=== PATIENT | male | born 1970 | race Caucasian/White ===

== ENCOUNTER 2018-03-22 12:19 | Inpatient (IN) | payer OTHER ==
[2018-03-22] VITALS (181 sets, daily range): BP systolic 94–136; BP diastolic 55–99; PULSE 76–153; TEMP 97.6–99.2; O2SAT 88–99
[~2018-03-22] VITALS: Wt 121.9 kg
[~2018-03-22 12:19] MED LIST: GABAPENTIN100 M1 PO; GLUCOSAMINE500 MG PO
--- NOTE | 2018-03-22 12:25 | NUR ---
REPORT RECEIVED FROM HERBER MONSALVE OF [place] VIA TELEPHONE.
--- NOTE | 2018-03-22 13:30 | NUR ---
PT ARRIVED VIA STRETCHER ESCORTED BY EMS. PT ALERT AND ORIENTED, DENIES ANY PAIN EXCEPT FOR 2/10 HEADACHE. PT ORIENTED TO ROOM.
--- NOTE | 2018-03-22 14:10 | NUR ---
DR. KIDD AT BEDSIDE FOR ROUNDS.
[2018-03-22] MEDS ORDERED: TOPROL XL 25MG25 MG PO (14:34)
[2018-03-22] MEDS ORDERED: ZYRTEC 10MG10 MG PO (14:35)
--- NOTE | 2018-03-22 15:40 | NUR ---
DR. FIELDS AT BEDSIDE FOR ROUNDS.
[2018-03-22 15:43] LABS: CHOLESTEROL RISK RATIO 6.2; MAGNESIUM 1.6 mg/dL (1.6-2.3)
[2018-03-22 15:53] LABS: INR 1.2 (0.8-3.0); PROTHROMBIN TIME 13.1 SECONDS (9.7-12.8)
[2018-03-22 15:56] LABS: PARTIAL THROMBOPLASTIN TIME 29.4 SECONDS (26.0-37.0)
[2018-03-22 16:07] LABS: TROPONIN-I 0.036 ng/mL (0.000-0.034)
--- NOTE | 2018-03-22 16:19 | NUR ---
Dr Melgoza called with troponin results. Orders received to only recheck in AM.
--- NOTE | 2018-03-22 19:15 | NUR ---
REPORT GIVEN TO HERBER RENAE AT BEDSIDE. MEDICATIONS AND LINES REVIEWED. ALL QUESTIONS ANSWERED.
--- NOTE | 2018-03-22 19:15 | NUR ---
Bedside report received from Karlee. Pt alert during report.
--- NOTE | 2018-03-22 22:00 | NUR ---
Pt assessment complete. Pt is resting in bed with eyes closed when staff entered the room. Was pleasant and cooperative with cares although would keep eyes closed during assessment. Pt moved in the bed easily and without assistance from staff. No complaints at this time. Reviewed NPO status although pt is currently is in sinus rhythm. Pt agreeable to treatment plan. Questions encouraged with pt denying having any.
[2018-03-23] VITALS (179 sets, daily range): BP systolic 92–115; BP diastolic 52–77; PULSE 58–63; TEMP 98–98.6; O2SAT 87–100
--- NOTE | 2018-03-23 04:00 | NUR ---
Pt has been resting quietly since assessment at the beginning of the shift. No s/sx of pain or discomfort noted when nurse has entered the room to adjust pumps or check on pt.
--- NOTE | 2018-03-23 07:40 | NUR ---
Bedside report provided to Kika Barrera RN. Pt alert and participated in report. No questions when asked.
--- NOTE | 2018-03-23 07:40 | NUR ---
Bedside report received from HERBER Espinoza.
--- NOTE | 2018-03-23 08:00 | NUR ---
Assessment completed. Pt denies any pain at this time. Discussed plan of care r/t cardizem gtt and cardioversion on hold since pt HR SR. VSS. pt up to void. steady gait. Will monitor.
--- NOTE | 2018-03-23 09:15 | NUR ---
Macrina WATKINS with Dr Ritter is at bedside. updated on pt status.
[2018-03-23 09:31] LABS: BASO % 0.5 % (0.0-2.0); EOS # 0.1 (0.0-0.7); EOS % 1.6 % (0-4.0); GRAN # 4.6 (1.4-6.5); GRAN % 70.9 % (42.2-75.2); HEMATOCRIT 39.3 % (42.0-52.0); LYMPH # 1.2 (1.2-3.4); LYMPH % 18.1 % (20.0-51.0); MEAN CELL VOLUME 91 fl (80.0-100.0); MEAN CORPUSCULAR HEMOGLOBIN 30 pg (27.0-31.0); MEAN CORPUSCULAR HGB CONC 33 g/dl (33.0-37.0); MEAN PLATELET VOLUME 9.8 fl (7.4-10.4); MONO # 0.6 (0.1-0.6); MONO % 8.6 % (1.7-9.3); PLATELET COUNT 173 K/mm3 (130-400); RED BLOOD COUNT 4.31 M/mm3 (4.20-5.60)
[2018-03-23 09:42] LABS: CALCIUM 8.5 mg/dL (8.4-10.2); CREATININE, serum 0.95 mg/dL (0.66-1.25); MAGNESIUM 1.8 mg/dL (1.6-2.3); POTASSIUM 4.1 mmol/L (3.4-5.0)
--- NOTE | 2018-03-23 09:45 | NUR ---
Plan is to return home, lives alone. Patient reports that he resides in [place], [place]. Patient reports that his emergency contact on file Deyanira is up to date. Patient indicated that he uses [facility] for short term medications, and [facility] for others. Patient reports that he does not use any DME. Patient indicated Dr. Melgoza is Cardi and Dr. Drake is PCP on [place]. No additonal needs identified.
--- NOTE | 2018-03-23 10:00 | NUR ---
oRDERS TO TITRATE CARDIZEM GTT OFF PER DR ROJO.
[2018-03-23] MEDS ORDERED: TAMBOCOR 1100 MG/TAB PO (10:09)
[2018-03-23] MEDS ORDERED: ASPIRIN 81M81 MG/TA2 PO (10:10)
[2018-03-23] MEDS ORDERED: VALTREX1 GM PO (10:11)
--- NOTE | 2018-03-23 12:30 | NUR ---
Discharged papers signed by pt. Discussed atrial fibrillation, medications and follow up appointments. Pt verbalized understanding. Right hand PIV dc'd. catheter intact. Pt states he feels better. Pt has all belongings and walked out of unit.
== END 2018-03-23 12:30 | disposition home or self-care (01) | DRG 310 ==
LOC: IMCU 12:19 → ICU 13:30
PROVIDERS: Physician Assistant; ADMIT Internal Medicine
DX: I48.0 Paroxysmal atrial fibrillation (principal); K21.9 Gastro-esophageal reflux disease without esophagitis; B00.1 Herpesviral vesicular dermatitis; I95.9 Hypotension, unspecified; R07.9 Chest pain, unspecified
CPT/HCPCS: 99222-AI; 99239; J1160; J7030

== ENCOUNTER → 2019-03-23 | Outpatient (CLI) | payer OTHER ==
[~2019-03-23] MED LIST changes: +ASPIRIN 81M81 MG/TA2 PO; +TAMBOCOR 1100 MG/TAB PO; +TOPROL XL 25MG25 MG PO; +VALTREX1 GM PO; +ZYRTEC 10MG10 MG PO
== END ==
LOC: COL.RAD 06:45
DX: M17.12 Unilateral primary osteoarthritis, left knee (principal); S83.242A Other tear of medial meniscus, current injury, left knee, initial encounter

== ENCOUNTER → 2019-08-03 | Outpatient (CLI) | payer OTHER | LOC: COL.RAD 08-02 14:00 | DX: R41.89 Other symptoms and signs involving cognitive functions and awareness (principal) ==

== ENCOUNTER 2023-04-27 23:32 | Inpatient (IN) | payer OTHER ==
[~2023-04-27] VITALS: Ht 193 cm; Wt 116.2 kg
[2023-04-28] VITALS (25 sets, daily range): BP systolic 107–143; BP diastolic 61–89; PULSE 54–70; TEMP 97.6–98
[2023-04-28] MEDS ORDERED: LIDODERM 5% PATC1 EA TP (01:23)
[2023-04-28] MEDS ORDERED: PROTONIX20 MG PO (01:23)
[2023-04-28] MEDS ORDERED: VOLTAREN GEL 1%1 TU TP (01:25)
[2023-04-28] MEDS ORDERED: VIAGRA100 M1 PO (01:27)
[2023-04-28] MEDS ORDERED: LAMISIL250 M1 PO (01:29)
[2023-04-28] MEDS ORDERED: NS 1,000 ML IV SCH (01:30)
--- NOTE | 2023-04-28 02:17 | NUR ---
patient arrived via EMS from [place] around 0115, alert and oriented x4. ambulates with steady gait. IV in LAC is patent, site is clean dry and intact with NS running at 75 ml/hr. pt denies chest pain, shortness of breath, nausea, and abd pain. no remarkable skin findings noted. pt educated of NPO status, verbally understood. pt has no further needs, questions, or concerns at this time. call light within reach. will continue to monitor.
[2023-04-28] MEDS ORDERED: FLONASE NASAL S16 GM NS (03:21)
[2023-04-28] MEDS ORDERED: CELEBREX 200MG200 MG PO (03:21)
[2023-04-28] MEDS ORDERED: Fluticasone Nasal 50 MCG/Spray 16 GM BOTTLE NS PRN (03:30)
[2023-04-28] MEDS ORDERED: Ondansetron 4 MG/2 ML VIAL IV PRN ×3 (03:45→17:30)
[2023-04-28 07:35] LABS: BASO % 0.5 % (0.0-2.0); EOS # 0.2 K/mm3 (0.0-0.7); EOS % 2.4 % (0.0-4.0); GRAN % 65.3 % (42.2-75.2); HEMOGLOBIN 12.9 g/dl (13.5-18.0); LYMPH # 1.4 K/mm3 (1.2-3.4); LYMPH % 22.8 % (20.0-51.0); MEAN CELL VOLUME 89 fl (80.0-100.0); MEAN CORPUSCULAR HEMOGLOBIN 32 pg (27-31); MEAN CORPUSCULAR HGB CONC 35 g/dl (33.0-37.0); MEAN PLATELET VOLUME 9.4 fl (7.4-10.4); MONO # 0.5 K/mm3 (0.1-0.6); MONO % 8.4 % (1.7-9.3); PLATELET COUNT 162 K/mm3 (130-400); REDCELL DISTRIBUTION WIDTH-CV 13.6 % (11.5-14.5)
[2023-04-28 07:38] LABS: HEMATOCRIT 36.5 % (42.0-52.0)
[2023-04-28 07:40] LABS: CALCIUM 9.3 mg/dL (8.4-10.2); CHOLESTEROL RISK RATIO 5.5; CREATININE, serum 0.91 mg/dL (0.72-1.25); POTASSIUM 3.7 mmol/L (3.5-4.5)
--- NOTE | 2023-04-28 08:30 | NUR ---
pt a&ox3 resting in bed. meds given and assessment complete. pt rayna pain and nausea/vomiting. vss and tele in place. pt refused lidocain patch this morning. fluids infusing into left ac at 75ml/hr. pt independent in room. denies needs at this time. call light in reach.
[2023-04-28] MEDS ORDERED: Pantoprazole 40 MG in NS 10 ML IV SCH (09:00)
[2023-04-28] MEDS ORDERED: Lidocaine 4% Topical Patch TP SCH (09:00)
--- NOTE | 2023-04-28 11:24 | NUR ---
pt off floor for loop recorder removal
--- NOTE | 2023-04-28 11:33 | NUR ---
Refer to [facility] [employer] report for procedural note/sedation
[2023-04-28] MEDS ORDERED: NS 100 ML IV.SOLN. IR SCH (11:37)
[2023-04-28] MEDS ORDERED: Midazolam 2 MG/2 ML VIAL IV SCH (11:46)
[2023-04-28] MEDS ORDERED: fentaNYL 50 MCG/ML 2 ML VIAL IV SCH (11:47)
--- NOTE | 2023-04-28 12:10 | NUR ---
Pt back to rm 319 - bedside handoff performed with NicoleRN - vitals and Loop explant sit reviewed together and stable. Call light in reach. Pt denies futher needs.
[2023-04-28] MEDS ORDERED: LR 1,000 ML IV SCH (12:15)
--- NOTE | 2023-04-28 12:39 | NUR ---
Initial visit; Patient thanked Information Systems Director for looking in on him. Patient was very pleasant and was receptive to Information Systems Director keeping him in her prayers.
[2023-04-28] MEDS ORDERED: Indocyanine Green 6.25 MG in Water For Injection,Sterile 1.25 ML IV ONE (14:30)
[2023-04-28] MEDS ORDERED: HYDROmorphone 2 MG/1 ML VIAL IV PRN (14:45)
[2023-04-28] MEDS ORDERED: Meperidine 50 MG/ML 1 ML VIAL IV PRN (14:45)
[2023-04-28] MEDS ORDERED: hydrALAZINE 20 MG/ML 1 ML VIAL IV PRN (14:45)
[2023-04-28] MEDS ORDERED: fentaNYL 50 MCG/ML 2 ML VIAL IV PRN (14:45)
[2023-04-28] MEDS ORDERED: fentaNYL 50 MCG/ML 5 ML VIAL ONE (15:11)
[2023-04-28] MEDS ORDERED: Lidocaine PF 2% (20 MG/ML) 5 ML VIAL ONE (15:11)
[2023-04-28] MEDS ORDERED: Ondansetron 4 MG/2 ML VIAL ONE (15:11)
[2023-04-28] MEDS ORDERED: dexAMETHasone 10 MG/ML VIAL ONE (15:11)
[2023-04-28] MEDS ORDERED: Rocuronium 50 MG/5 ML Multi-Dose VIAL ONE (15:14)
--- NOTE | 2023-04-28 15:44 | NUR ---
pt off floor for procedure
[2023-04-28] MEDS ORDERED: Topical Skin Adhesive 1 EACH (1 ML) TOP ONE ×2 (16:18→17:21)
--- NOTE | 2023-04-28 16:48 | NUR ---
landing worker and NESS student met with patient and his significant other to discuss discharge planning. Patient lives in [place]. PCP is at [facility], pharmacy is [facility] on [address]. no issues affording medications. Best point of contact is Carrol (significant other) P# [phone]. Patient wanted to establish a DPOA-HC. NESS assisted patient with the form, patient appointed Carrol as his DPOA-HC, SW and NESS student witnessed patient signature. NESS student made copies, placed copy in chart and provided original and copies to patient. No DME, reports independent with ADLS and can transport himself to and from appointments. Patient would like to return home at time of discharge. Discharge plan: Home
[2023-04-28] MEDS ORDERED: Succinylcholine PF 100 MG/5 ML SYRINGE/POLY AMP IV ONE (17:07)
[2023-04-28] MEDS ORDERED: Ketorolac 30 MG/ML VIAL ONE (17:08)
[2023-04-28] MEDS ORDERED: Ibuprofen 600 MG TAB PO PRN (17:30)
[2023-04-28] MEDS ORDERED: Acetaminophen 325 MG TAB PO PRN (17:30)
--- NOTE | 2023-04-28 18:00 | NUR ---
pt back in room from surgery, at bedside. vss. pt a&ox3. x4 lap sites are cdi. pain is tolerable. no needs at this time. call light in reach.
--- NOTE | 2023-04-28 18:34 | NUR ---
pt refused cpap, stating he is being evaluated for internal cpap device.
--- NOTE | 2023-04-28 20:30 | NUR ---
Patient assessed around 1999. Alert and oriented, and able to make needs known. Reported pain to abdomen, rated as a 1, but did have facial grimacing. Given PRN Gurley for pain, as well as PRN Zofran for mild nausea. Did ambulate in hallway. Lap sites CDI. Aware of plan for echo tomorrow, then discharge home. Voices no questions, needs, or concerns at this time. In bed with call light within reach.
[2023-04-29 03:25] VITALS: BP 106/61; PULSE 65; TEMP 98
[2023-04-29 04:11] VITALS: BP_SYST 106
--- NOTE | 2023-04-29 05:38 | NUR ---
Received PRN [place] and PRN Motrin as requested for pain during the night. No further complaints of pain or discomfort at this time. Bandaid placed on lap site due to minimal bleeding. Has been up ambulating in hallways. Voices no quetions, needs, or concerns at this time. In bed with call light within reach.
[2023-04-29] MEDS ORDERED: NORCO 325 MG-51 TAB PO (07:31)
[2023-04-29 07:58] VITALS: BP 122/67; PULSE 57; TEMP 97.8
--- NOTE | 2023-04-29 10:12 | NUR ---
Follow-up visit; Patient doing well and is about to be discharged. His daughter was with him so Pack Worker Supervisor got to wish them both well and jokingly ask his daughter to make him rest and let all the things he is doing outside will be there when he's well. Jin thanked Pack Worker Supervisor for coming in and wishing him well.
[2023-04-29 10:15] VITALS: BP_SYST 122
--- NOTE | 2023-04-29 10:43 | NUR ---
PATIENT DISCHARGE ORDERS GVEN. PATIENT QUESTIONS ANSWERED. WALKED TO THE OUTPATIENT DOORS WITH VIA [facility] STAFF. IV DISCONTINIED/ TELE DISCONTINIED.
[2023-04-29 10:46] LABS: BASO % 0.2 % (0.0-2.0); EOS % 0.1 % (0.0-4.0); GRAN # 9.9 K/mm3 (1.4-6.5); GRAN % 80.5 % (42.2-75.2); HEMATOCRIT 40.5 % (42.0-52.0); HEMOGLOBIN 14.4 g/dl (13.5-18.0); LYMPH # 1.7 K/mm3 (1.2-3.4); LYMPH % 13.5 % (20.0-51.0); MEAN CELL VOLUME 89 fl (80.0-100.0); MEAN CORPUSCULAR HEMOGLOBIN 32 pg (27-31); MEAN CORPUSCULAR HGB CONC 36 g/dl (33.0-37.0); MEAN PLATELET VOLUME 9.2 fl (7.4-10.4); MONO # 0.6 K/mm3 (0.1-0.6); MONO % 5.2 % (1.7-9.3); PLATELET COUNT 211 K/mm3 (130-400); RED BLOOD COUNT 4.53 M/mm3 (4.20-5.60); REDCELL DISTRIBUTION WIDTH-CV 13.1 % (11.5-14.5)
--- NOTE | 2023-04-29 10:52 | NUR ---
slate worker attended clinical rounding with interdisciplinary team, patient is medically ready for discharge today. Discharge plan: Home
[2023-04-29 10:53] LABS: CALCIUM 9.7 mg/dL (8.4-10.2); CREATININE, serum 1.01 mg/dL (0.72-1.25); POTASSIUM 3.7 mmol/L (3.5-4.5)
== END 2023-04-29 10:45 | disposition home or self-care (01) | DRG 419 ==
LOC: MEDICAL 23:32
PROVIDERS: Nurse Practitioner Family; Surgery; ADMIT Hospitalist
PROC: 8E0W4CZ Robotic Assisted Procedure of Trunk Region, Percutaneous Endoscopic Approach (ICD-10-PCS; 2023-04-28)
PROC: 0JPT02Z Removal of Monitoring Device from Trunk Subcutaneous Tissue and Fascia, Open Approach (ICD-10-PCS; 2023-04-28)
PROC: 0FT44ZZ Resection of Gallbladder, Percutaneous Endoscopic Approach (ICD-10-PCS; principal; 2023-04-28 15:45)
DX: K80.00 Calculus of gallbladder with acute cholecystitis without obstruction (principal); K21.9 Gastro-esophageal reflux disease without esophagitis; G47.33 Obstructive sleep apnea (adult) (pediatric); F43.10 Post-traumatic stress disorder, unspecified; M19.90 Unspecified osteoarthritis, unspecified site; D64.9 Anemia, unspecified; R79.89 Other specified abnormal findings of blood chemistry; K57.30 Diverticulosis of large intestine without perforation or abscess without bleeding; I48.0 Paroxysmal atrial fibrillation; Z79.899 Other long term (current) drug therapy; Z95.818 Presence of other cardiac implants and grafts
CPT/HCPCS: C9113; J0330; J0690; J1100; J1650; J1885; J2250; J2405; J2704; J3010; J7030; J7120